=== PATIENT | female | born 1965 | race American Indian/Alaskan Native ===

== ENCOUNTER 2018-03-06 14:32 | Emergency (ER) | payer SELFPAY ==
[2018-03-06 16:52] LABS: Basophils % (Auto) 0.4 % (0.0-1.8); Eosinophils % (Auto) 0.3 % (0.0-4.3); Hematocrit 37.1 % (30.3-42.9); Hemoglobin 12.4 gm/dl (10.1-14.3); Lymphocytes # (Auto) 2.1 K/mm3 (1.2-5.4); Lymphocytes % (Auto) 50.5 % (13.4-35.0); Mean Corpuscular HGB Conc 33 % (30-34); Mean Corpuscular Hemoglobin 30 pg (28-32); Mean Corpuscular Volume 91 fl (79-97); Monocytes # (Auto) 0.5 K/mm3 (0.0-0.8); Monocytes % (Auto) 12.1 % (0.0-7.3); Platelet Count 438 K/mm3 (140-440); Red Cell Distribution Width 14.8 % (13.2-15.2)
[2018-03-06 17:13] LABS: BUN/Creatinine Ratio 16; Blood Urea Nitrogen 8 mg/dL (7-17); Calcium 9.1 mg/dL (8.4-10.2); Hemolysis Index 4
[2018-03-06] MEDS ORDERED: ASPIRIN PO ONE (17:31)
[2018-03-06] MEDS ORDERED: ASPIRIN ONE ×2 (17:36→20:13)
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
[2018-03-06] MEDS ORDERED: TYLENOL PO ONE (20:42)
--- NOTE | 2018-03-06 22:42 | XRay Report ---
FINAL REPORT EXAM: XR CHEST ROUTINE 2V HISTORY: chest pain TECHNIQUE: Frontal and lateral chest x-ray. PRIORS: None. FINDINGS: Cardiac and mediastinal silhouette within normal limits. Lungs are normally expanded, without significant vascular congestion. No focal consolidation, apparent pleural effusion or pneumothorax. Bony thorax grossly unremarkable. Mild wedging of mid and lower thoracic vertebral bodies probably chronic. IMPRESSION: 1. No acute findings.
[2018-03-06 23:16] VITALS: BP 130/67
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
== END 2018-03-07 00:03 | disposition home or self-care (01) ==
LOC: ED 14:32
DX: S29.9XXA Unspecified injury of thorax, initial encounter (principal); Y04.8XXA Assault by other bodily force, initial encounter; Y93.89 Activity, other specified; Y92.89 Other specified places as the place of occurrence of the external cause; Y99.8 Other external cause status
CPT/HCPCS: 36415; 71046; 80048; 84484; 85025; 93005; 93010; 99284